=== PATIENT | female | born 1970 | race Caucasian/White ===

== ENCOUNTER → 2018-06-18 16:18 | Outpatient (CLI) | payer BC, SELFPAY ==
[2018-06-21 13:29] LABS: HPV Reflexed? NOT INDICATED
== END ==
PROVIDERS: Visit Provider Obstetrics & Gynecology
DX: Z12.4 Encounter for screening for malignant neoplasm of cervix (principal)
CPT/HCPCS: 87624; 88175; G0145

== ENCOUNTER → 2020-07-01 | Outpatient (CLI) | payer BC, SELFPAY ==
[2020-07-06 18:03] LABS: HPV Reflexed? NOT INDICATED
== END | disposition home or self-care (01) ==
LOC: LABSPEC 12:01
PROVIDERS: Visit Provider Obstetrics & Gynecology
DX: Z12.4 Encounter for screening for malignant neoplasm of cervix (principal)
CPT/HCPCS: 88175; G0145

== ENCOUNTER 2023-09-29 12:40 | Day surgery (SDC) | payer BC, SELFPAY ==
--- NOTE | 2023-09-11 13:19 | PCM.HP.BLA ---
History and Physical Date of Admission: 09/29/23 HPI: The patient is a 52 year old female presenting for pre-operative visit. She is scheduled for hysteroscopy dilation and curettage with levonorgestrel IUD insertion, for abnormal uterine bleeding and endometrial polyp on 09/15/23. Procedure discussed along with risks, benefits and complications. Other alternatives discussed for management. Consent form signed? Yes. ? ? PAST MEDICAL HISTORY PAST MEDICAL HISTORY Diagnosis Date ? Asthma ? ? Class 1 obesity due to excess calories without serious comorbidity with body mass index (BMI) of 30.0 to 30.9 in adult ? ? Hyperlipidemia ? ? Psoriasis ? ? Seborrheic keratosis ? ? ? PAST SURGICAL HISTORY PAST SURGICAL HISTORY Procedure Laterality Date ? COLONOSCOPY ? 2013 ? normal, repeat in 10 years ? EGD ? ? ? PAST SURGICAL HISTORY OF ? ? ? tonsils ? PAST SURGICAL HISTORY OF ? ? ? several other surgeries around 1 yr of age ? PAST SURGICAL HISTORY OF Right ? ? inguinal hernia repair ? ? ? CURRENT MEDICATIONS Current Outpatient Medications Medication Sig Dispense Refill ? fluticasone-salmeterol (ADVAIR DISKUS) 100-50 mcg/dose inhaler Inhale 1 Puff as instructed two times a day. RINSE AND GARGLE MOUTH WITH WATER AFTER EACH USE. 3 Each 3 ? albuterol HFA (VENTOLIN HFA) 90 mcg/actuation inhaler Inhale 2 Puffs as instructed every 4 hours as needed. 18 g 1 ? multivit-min/iron/folic/pom119 (HAIR, SKIN AND NAILS ADVANCED ORAL) Take 3 tablets by mouth once daily. ? ? ? Qerrs-7-KYK-EPA-Fish Oil (FISH OIL) 1,000 mg (120 mg-180 mg) cap Take 2 capsules by mouth twice daily. (Patient taking differently: Take 2 g by mouth once daily.) ? ? ? Magnesium 250 mg tab Take 250 mg by mouth once daily. ? ? ? TURMERIC ROOT EXTRACT ORAL Take 1 capsule by mouth once daily. ? ? ? VITAMIN E ORAL Take 400 mg by mouth once daily. ? multivitamin tablet Take 1 tablet by mouth once daily. ? 0 ? No current facility-administered medications for this visit. ? ? ALLERGIES: Seasonal Allergies ? PERSONAL HISTORY: SOCIAL HISTORY Social History ? Tobacco Use ? Smoking status: Former ? Smokeless tobacco: Never ? Tobacco comments: ? ? as teenager Vaping Use ? Vaping Use: Never used Substance Use Topics ? Alcohol use: Yes ? ? Comment: rarely, 2x per year ? Drug use: No ? FAMILY HISTORY: FAMILY HISTORY FAMILY HISTORY Problem Relation Age of Onset ? None Mother ? ? Colon Cancer Mother 69 ? None Father ? ? Diabetes Paternal Grandfather ? ? Cancer Paternal Grandmother ? ? throat ? ? REVIEW OF SYMPTOMS: GENERAL: denies fevers or chills ENDOCRINOLOGY: has not been on steroids Cardiology : denies palpitations or chest pain Respiratory: denies SOB or cough Hematology: denies history of prolonged bleeding or easy bruising or VTE Allergy: Denies history of personal or family history of allergy to anesthesia ? PHYSICAL EXAMINATION: ? VITALS: Last menstrual period 07/29/2023. ? GENERAL: The patient is well nourished, well hydrated in no acute distress. , The patient is oriented to time, place, and person. NECK: Supple. No lynphadenopathy, normal thyroid, no thyromegaly. LUNGS: Clear to auscultation bilaterally. no wheezes, rhonchi or rales HEART: Regular rate and rhythm, Normal heart sounds, and No murmurs or gallops ? ? ? PELVIC US 08/18/23 RESULT: Uterus: -Size: 8.7 x 4.5 x 5.3 cm -Orientation: Anteverted -Endometrial echo complex: Evaluation of the endometrium was adequate. 1.2 x 0.7 x 1.2 cm polyp within it. ?This is echogenic and vascular. The endometrial echo complex measured 1.4 cm. -Cervix: Nabothian cysts present, otherwise unremarkable. -Adenomyosis assessment: There are no sonographic findings of adenomyosis. -Fibroids: There are no fibroids. Right Ovary: 2.2 x 1.5 x 1.9 cm. ?Normal appearance Left Ovary: 2.6 x 1.7 x 1.6 cm. 1.2 cm corpus luteum cyst. ? 08/04/23 Normal pap and neG hrhpv ? ? ? IMPRESSION: Endometrial polyp and abnormal uterine bleeding ? PLAN: The risks/benefits/alternatives and personal involved for the planned hysteroscopy D&C w/ IUD insertion were reviewed with the patient. Her questions were answered to her satisfaction and she desires to proceed. Consent was signed. I reviewed with her postop instructions and expectations. EMB not done since has polyp will sample w/ D&C ? I have reviewed and updated past medical and surgical history, medications and allergies Assessment & Plan Assessment/Plan (1) Endometrial polyp: (2) Abnormal uterine bleeding (AUB):
[2023-09-29 12:58] VITALS: BP 154/97; PULSE 99; RESP 16; TEMP 36.6; O2SAT 99; BMI 31.3
[2023-09-29] MEDS: Lactated Ringers 1,000 ML 15 ML IV (13:07)
[2023-09-29] MEDS: Ketorolac 30 MG/ML Syringe IV (13:07)
[2023-09-29] MEDS: Acetaminophen 500 MG Tablet 1000 MG PO (13:07)
[2023-09-29 13:23] LABS: Internal QC Validated? YES +Cl - CLEAR BKGD; Pregnancy, Urine Negative Negative; Record Kit Lot#,Urine Preg 718089
--- NOTE | 2023-09-29 13:34 | DCINST_ITS ---
Discharge Instructions Diet Discharge Diet: No restrictions Activity Discharge Activity: May Shower May resume sexual activity in: 1 week Lifting Restrictions: none Dressing / Incision Call your doctor if your incision/area has: Sudden Increased Bleeding and Foul Smelling Discharge Call your doctor if you observe: Fever of 101 or Higher and Using more than 1 pad per hour (for 2 hrs in a row) Follow Up Care Please Follow Up With: Maricruz Espino MD When: You don't need a follow up, if you have problems with abnormal bleeding please contact the office, otherwise follow up for you annual exam. Call [phone] to make an appointment or send a [email or web address] message with any concerns or questions Test Results: Test results from this visit will be discussed in further detail at your follow- up appointment, if applicable. Discharge Plan Admission Attending Provider: Maricruz Espino Primary Care Provider: Daniele Lee Instructions Print Language: Armenian Discharge Orders/Prescriptions Prescriptions: No Action Azfl-Obsd-Frfx(vit A,C-biotin) 2,500 unit-100 mg-2,500 mcg capsule 1 cap PO DAILY omega 3-ylo-jjs-fish oil [Fish Oil] 1,200 (144-216) mg capsule 1 cap PO DAILY multivitamin [Daily Multi-Vitamin] Tablet 1 tab PO DAILY Disposition Disposition (needs filled in before D/C Order can be placed): Home, Self Care
--- NOTE | 2023-09-29 13:38 | OP.PCM_ITS ---
Problems Associated Problem List Diagnoses (1) Abnormal uterine bleeding (AUB): (2) Endometrial polyp: (3) Encounter for IUD insertion: Report of Operation Date of Procedure: 09/29/23 Pre-Operative Diagnosis: AUB, endometrial polyp, IUD insertion Post-Operative Diagnosis: same Surgery/Procedure Performed:: Hysteroscopy D&C with polyp resection and IUD insertion Description of Surgical Findings:: Surgeon: Maricruz Espino supervisor riprap placing: Shelby Reed M3 Type of Anesthesia: MAC/Supplemental/Local Anesthesiologist: Yael Goins Special Medications: none Specimen's removed: endometrial curettings and polyp Drains: none Estimated Blood Loss (mL): 10 Description of Procedure: The patient was taken to the OR where she was prepped and draped in dorsal lithotomy position. The weighted speculum was placed in the vagina and the anterior lip of the cervix was grasped with a single-tooth tenaculum. A paracervical block was administered with [1% lidocaine with 1-100,000 epinephrine solution]. The cervix was dilated serially with Hegar dilators. The Symphion hysteroscope was placed into the uterine cavity and the above findings were noted. Bilateral tubal ostia [were] identified. The hysteroscope was removed. The Symphion resection device was readied and inserted. []. The instruments were removed from the vagina. The specimen was handed off and sent to pathology. All sponge and needle counts were correct. Vaginal sweep was performed by me. The patient was awakened and taken to the recovery room in stable condition. calculated fluid deficit of normal saline Grafts/Implants Used: Liletta IUD Complications none Admit VTE Documentation VTE Present on Admission: No VTE Mechan Device Prophylaxis: [facility] VTE Pharm Prophylaxis ordered?: No Reason prophylaxis not ordered:: Procedure Not Indicated
--- NOTE | 2023-09-29 13:38 | PCM.OPRPT ---
Problems Associated Problem List Diagnoses (1) Abnormal uterine bleeding (AUB): (2) Endometrial polyp: (3) Encounter for IUD insertion: Report of Operation Date of Procedure: 09/29/23 Pre-Operative Diagnosis: AUB, endometrial polyp, IUD insertion Post-Operative Diagnosis: same Surgery/Procedure Performed:: Hysteroscopy D&C with polyp resection and IUD insertion Description of Surgical Findings:: lush endometrium, normal cervix and vagina. polypoid posterior endometrial structure Surgeon: Maricruz Espino nurse college: [employer] M3 Type of Anesthesia: MAC/Supplemental/Local Anesthesiologist: Yael Goins Special Medications: none Specimen's removed: endometrial curettings and polyp Drains: none Estimated Blood Loss (mL): 10 Fluids Replaced: 600 Description of Procedure: The patient was taken to the OR where she was prepped and draped in dorsal lithotomy position. The weighted speculum was placed in the vagina and the anterior lip of the cervix was grasped with a single-tooth tenaculum. A paracervical block was administered with 1% lidocaine with 1-100,000 epinephrine solution. The cervix was dilated serially with Hegar dilators. The Symphion hysteroscope was placed into the uterine cavity and the above findings were noted. Bilateral tubal ostia were identified. The hysteroscope was removed. The Symphion resection device was readied and inserted. The polypoid structure at the posterior wall of the uterus and the lush endometrium were resected. The Liletta IUD was then inserted in the usual sterile fashion. The uterus sounded to 10 cm. The instruments deployed without difficulty and the strings were cut to 2 cm.. The instruments were removed from the vagina. The specimen was handed off and sent to pathology. All sponge and needle counts were correct. Vaginal sweep was performed by me. The patient was awakened and taken to the recovery room in stable condition. I performed the entire procedure with assistance calculated fluid deficit of normal saline 750 cc Grafts/Implants Used: Liletta IUD Procedure Start Time: 13:54 Procedure Stop Time: 14:09 Complications none Admit VTE Documentation VTE Present on Admission: No VTE Mechan Device Prophylaxis: SCD's VTE Pharm Prophylaxis ordered?: No Reason prophylaxis not ordered:: Procedure Not Indicated
[2023-09-29] MEDS: Lidocaine 1% /Epi 1:100 (20ml) 20 ML Vial (13:54)
[2023-09-29] MEDS: Levonorgestrel IUD (Liletta) 1 EACH INTRA-UTER (14:10)
--- NOTE | 2023-09-29 14:10 | EMB_PTH ---
PATIENT: DARCY ANDERSEN LOC: [facility] [place] U#:[id number] AGE/SX: 53/F ROOM: RE09/29/[address]: Dr. Maricruz Espino MD : 1970 BED: DIS: 09/29/2023 SPEC #: [id number] RECD: 09/29/23 15:27 STATUS: [place] #: [id number] JOSHUA: 09/29/23 14:[address]: Maricruz Espino DEPT: SURGICAL PATHOLOGY RECD BY: Nancy Steiner ENTERED: 10/02/23 08:54 SP TYPE: ENDOM BX/C OTHR DR: Dr. Daniele Lee MD Tissues: Endometrium, NOS Procedures: Surgery Specimen Level IV HEADER OPERATION: Hysteroscopy, D&C, polyp resection, symphion, IUD insertion PRE-OP DIAGNOSIS: Abnormal uterine bleeding TISSUE SUBMITTED: Endometrial curettings and polyps MICROSCOPIC DIAGNOSIS Endometrial curettings and polyps: Polypoid fragments of disordered proliferative endometrium to simple hyperplasia without atypia with focal glandular breakdown. / 10/03/2023 MICROSCOPIC DESCRIPTION Slides are reviewed. GROSS DESCRIPTION Received in fixative is one container labeled with the patient's name and designated Endometrial curettings and polyp. The specimen consists of multiple irregular fragments of light vega soft tissue that in aggregate measure 8.0 x 3.0 x 0.2 cm. The specimen is totally submitted in three cassettes. / 10/02/2023 TC: 5 CPT:06201
[2023-09-29 14:20] VITALS: BP 128/71; BP 154/97; PULSE 84; RESP 16; TEMP 36.8; O2SAT 95
[2023-09-29 14:25] VITALS: BP 125/71; BP 154/97; PULSE 85; RESP 16; O2SAT 97
[2023-09-29 14:30] VITALS: BP 123/73; BP 154/97; PULSE 76; RESP 16; O2SAT 95
[2023-09-29 14:35] VITALS: BP 123/70; BP 154/97; PULSE 71; RESP 16; TEMP 36.9; O2SAT 96
[2023-09-29 14:55] VITALS: BP 154/97
== END 2023-09-29 15:04 | disposition home or self-care (01) ==
LOC: SDC 12:45 → AC 12:45
PROVIDERS: Anesthesiology; PCP Family Medicine; Referring Provider Obstetrics & Gynecology; Visit Provider Obstetrics & Gynecology
PROC: 0UB98ZZ Excision of Uterus, Via Natural or Artificial Opening Endoscopic (ICD-10-PCS; CPT 58558; principal; 2023-09-29 13:55)
DX: N85.01 Benign endometrial hyperplasia (principal); E78.5 Hyperlipidemia, unspecified; Z87.891 Personal history of nicotine dependence; N93.9 Abnormal uterine and vaginal bleeding, unspecified; J45.909 Unspecified asthma, uncomplicated; Z30.430 Encounter for insertion of intrauterine contraceptive device
CPT/HCPCS: 58558; 58300; 81025; 88305; J7120; A4216; J2405